=== PATIENT | male | born 1985 | race Hispanic/Latino ===

== ENCOUNTER 2017-03-29 20:57 | Emergency (ER) | payer OTHER ==
[2017-03-29 20:57] VITALS: BMI 24.3
[2017-03-29 21:52] VITALS: TEMP 98.9
[2017-03-29] MEDS ORDERED: Tmp-Smz 800 mg-160 mg DS Tab PO STA (22:26)
--- NOTE | 2017-03-29 22:31 | ED PDOC ---
Arrival/HPI - General Historian: Patient <Anca Jean PA-C - Last Filed: 03/30/17 01:44> - History of Present Illness Time/Duration: 1 week Symptom Onset: Sudden Symptom Course: Unchanged <Iwona Miles - Last Filed: 03/30/17 01:55> - General Chief Complaint: Abnormal Skin Integrity Time Seen by Provider: 03/29/17 22:04 - History of Present Illness Narrative History of Present Illness (Text): 03/29/17 22:32 PMD Miranda (Anca Jean PA-C) 03/29/17 22:35 Trevor Richardson is a 31 year old male who presents to the emergency department complaining of a laceration on the anterior right lower leg since one week ago. Patient reports that he decided not to seek medical attention and noticed the wound was not healing with self-treatment. He notes there is no discharge coming from the wound. Patient denies chest pain, shortness of breath , headache, fever, chills, cough, nausea, vomiting, diarrhea, abdominal pain, dizziness or other complaints. (Iwona Miles) Modifying Factors (Text): wound not healing (Iwona Miles) Past Medical History - Infectious Disease Hx of Infectious Diseases: None - Tetanus Immunization Tetanus Immunization: Up to Date - Reproductive Currently : No - Past Medical History Past Medical History: Non-Contributing - Cardiac Hx Cardiac Disorders: No Hx Angina: No Hx Atrial Fibrillation: No Hx Cardiac Arrhythmia: No Hx Circulatory Problems: No Hx Congestive Heart Failure: No Hx GA: No Hx Heart Murmur: No Hx Heart Transplant: No Hx Hypertension: No - Pulmonary Hx Respiratory Disorders: No - Neurological Hx Neurological Disorder: No - HEENT Hx HEENT Disorder: No - Renal Hx Renal Disorder: No - Endocrine/Metabolic Hx Endocrine Disorders: No - Hematological/Oncological Hx Blood Disorders: No Hx Blood Transfusions: No - Integumentary Hx Dermatological Disorder: No - Musculoskeletal/Rheumatological Hx Musculoskeletal Disorders: No Hx Falls: No - Gastrointestinal Hx Crohn's Disease: Yes - Genitourinary/Gynecological Hx Genitourinary Disorders: No - Psychiatric Hx Psychophysiologic Disorder: No Hx Depression: No Hx Emotional Abuse: No Hx Physical Abuse: No Hx Substance Use: No - Surgical History Other/Comment: bowel resection 2013 - Anesthesia Hx Anesthesia: No Hx Anesthesia Reactions: No Hx Malignant Hyperthermia: No - Suicidal Assessment Feels Threatened In Home Enviroment: No <Anca Jean PA-C - Last Filed: 03/30/17 01:44> - Provider Review Nursing Documentation Reviewed: Yes <Iwona Miles - Last Filed: 03/30/17 01:55> Family/Social History Smoking Status: Heavy Smoker > 10 Cigarettes Daily Hx Alcohol Use: No Hx Substance Use: No Hx Substance Use Treatment: No <Anca Jean PA-C - Last Filed: 03/30/17 01:44> - Physician Review Nursing Documentation Reviewed: Yes Family/Social History: Unknown Family HX <Iwona Miles - Last Filed: 03/30/17 01:55> Allergies/Home Meds <Anca Jean PA-C - Last Filed: 03/30/17 01:44> <Iwona Miles - Last Filed: 03/30/17 01:55> Allergies/Adverse Reactions: Allergies amoxicillin Allergy (Verified 04/17/16 06:53) RASH apple Allergy (Verified 04/17/16 06:53) RASH venom-honey bee [bee venom (honey bee)] Allergy (Verified 04/17/16 06:53) RASH Home Medications: Home Meds Medication Instructions Recorded Confirmed Mesalamine [Pentasa] 16,000 mg PO BID 03/09/13 03/29/17 predniSONE [predniSONE Tab] 20 mg PO BID 11/20/15 03/29/17 Budesonide [Uceris] 4 mg PO DAILY 03/29/17 03/29/17 oxyCODONE [oxyCODONE Immediate 30 mg PO PRN PRN 03/29/17 03/29/17 Release Tab] Review of Systems - Review of Systems Constitutional: Normal. absent: Fevers Eyes: Normal ENT: Normal Respiratory: Normal. absent: SOB Cardiovascular: Normal. absent: Chest Pain Gastrointestinal: Normal. absent: Abdominal Pain Genitourinary Male: Normal Musculoskeletal: Normal Skin: Laceration (right anterior lower leg) Neurological: Normal. absent: Headache Endocrine: Normal Hemo/Lymphatic: Normal Psychiatric: Normal <Iwona Miles - Last Filed: 03/30/17 01:55> Physical Exam Temperature: Afebrile Blood Pressure: Hypertensive Pulse: Tachycardic Respiratory Rate: Normal Appearance: Positive for: Well-Appearing, Non-Toxic, Comfortable Pain Distress: None Mental Status: Positive for: Alert and Oriented X 3 - Systems Exam Head: Present: Atraumatic, Normocephalic Pupils: Present: PERRL Extroacular Muscles: Present: EOMI Conjunctiva: Present: Normal Mouth: Present: Moist Mucous Membranes Neck: Present: Normal Range of Motion Respiratory/Chest: Present: Clear to Auscultation, Good Air Exchange. No: Respiratory Distress, Accessory Muscle Use Cardiovascular: Present: Regular Rate and Rhythm, Normal S1, S2. No: Murmurs Abdomen: Present: Normal Bowel Sounds. No: Tenderness, Distention, Peritoneal Signs Back: Present: Normal Inspection Upper Extremity: Present: Normal Inspection. No: Cyanosis, Edema Lower Extremity: Present: Normal Inspection. No: Edema Neurological: Present: GCS=15, CN II-XII Intact, Speech Normal Skin: Present: Warm, Dry, Erythematous (mild erythema sorrounding the wound), Laceration (10cm "v-shape" laceration on right lower leg not healing.). No: Rashes, Abscess Psychiatric: Present: Alert, Oriented x 3, Normal Insight, Normal Concentration <Iwona Miles - Last Filed: 03/30/17 01:55> Vital Signs Temp Pulse Resp BP Pulse Ox 03/29/17 22:56 89 16 131/92 H 95 03/29/17 21:51 98.9 F 103 H 18 145/99 H 97 Medical Decision Making <Anca Jean PA-C - Last Filed: 03/30/17 01:44> <Iwona Miles - Last Filed: 03/30/17 01:55> ED Course and Treatment: 03/29/17 22:28 31 yo M presents with infected wound to the R lower leg x 1 week. Patient offered inpt observation for IV antibiotics and surgical consult in the AM which he is refusing. He states that he would rather take po antibiotics and f/u as an outpt. Wound was irrigated, bacitracin and clean dressing applied. Patient medicated with keflex and bactrim po. Patient refuses further care, evaluation or inpatient observation in the hospital. Patient informed of the reasons for the following and planned treatment, which patient understands, however still refuses. Patient informed of the risk (including developing of sepsis, gangrene, loss of limb, disability , and ) and benefits of treatment (such as IV antibiotics and surgical consultation for possible wound debridement). Informed that the risk could include worsening of current conditions, undiagnosed conditions, disability or even . Patient understands the following risk and the benefits of treatment. Patient has the capacity to make decisions and still refuses treatment by RN, PA and ER MD. Patient encouraged to return to the ER at any time and to follow up with pmd. Patient advised to follow up with primary care physician and with surgical referral provided in 1-2 days without fail. Advised to take medication as prescribed. Return to the emergency room at any time for any new or worsening symptoms, or if he changes his mind. Patient states he fully agrees with and understands instructions. I have given the patient opportunity to ask any additional questions. (Anca Jean PA-C) - Medication Orders Current Medication Orders: Discontinued Medications Cephalexin Monohydrate (Keflex) 500 mg PO STAT STA PRN Reason: Protocol Stop: 03/29/17 22:28 Last Admin: 03/29/17 22:42 Dose: 500 mg Trimethoprim/Sulfamethoxazole (Bactrim Ds Tab) 2 tab PO STAT STA PRN Reason: Protocol Stop: 03/29/17 22:27 Last Admin: 03/29/17 22:42 Dose: 2 tab - PA / MAIL MANAGER / Resident Statement MD/DO has reviewed & agrees with the documentation as recorded. <Anca Jean PA-C - Last Filed: 03/30/17 01:44> - Scribe Statement The provider has reviewed the documentation as recorded by the Scribe <Iwona Miles - Last Filed: 03/30/17 01:55> - Scribe Statement 03/29/2017 Lorna Abrams Provider Scribe Attestation: All medical record entries made by the Scribkarrie were at my direction and personally dictated by me. I have reviewed the chart and agree that the record accurately reflects my personal performance of the history, physical exam, medical decision making, and the department course for this patient. I have also personally directed, reviewed, and agree with the discharge instructions and disposition. (Iwona Miles) Disposition/Present on Arrival - Present on Arrival Any Indicators Present on Arrival: No History of DVT/PE: No History of Uncontrolled Diabetes: No Urinary Catheter: No History of Decub. Ulcer: No History Surgical Site Infection Following: None - Disposition Have Diagnosis and Disposition been Completed?: Yes Disposition Time: 22:30 Patient Plan: Other (Pt is leaving AMA) <Anca Jean PA-C - Last Filed: 03/30/17 01:44> <Iwona Miles - Last Filed: 03/30/17 01:55> - Disposition Diagnosis: Wound infection Disposition: AGAINST MEDICAL ADVICE Condition: STABLE Discharge Instructions (ExitCare): Wound Infection (ED), Acute Wound Care (ED) , Against Medical Advice (ED) Print Language: POLISH Additional Instructions: Thank you for letting us take care of you today. You were treated for wound infection. The emergency medical care you received today was directed at your acute symptoms. If you were prescribed any medication, please fill it and take as directed. It may take several days for your symptoms to resolve. Return to the Emergency Department if your symptoms worsen, do not improve, or if you have any other problems. Please contact your doctor in 2 days for re-evaluation and follow up / or call one of the physicians/clinics you have been referred to that are listed on the Patient Visit Information form that is included in your discharge packet. Bring any paperwork you were given at discharge with you along with any medications you are taking to your follow up visit. Our treatment cannot replace ongoing medical care by a primary care provider (PCP) outside of the emergency department. Thank you for allowing the [facility] team to be part of your care today. Prescriptions: Cephalexin [Keflex] 500 mg PO Q6 #28 capsule Sulfamethoxazole/Trimethoprim [Bactrim DS 800 mg-160 mg] 2 tab PO BID #28 tab Referrals: Benitez Wellington MD [Medical Doctor] - Follow up with primary Forms: Stribe (Ukrainian), WORK NOTE
[2017-03-29 22:58] VITALS: BP 131/92; PULSE 89; RESP 16; O2SAT 95
== END 2017-03-29 23:01 | disposition left against medical advice (07) ==
LOC: ED 20:57
DX: L08.9 Local infection of the skin and subcutaneous tissue, unspecified (principal); F17.210 Nicotine dependence, cigarettes, uncomplicated